=== PATIENT | male | born 1990 | race Caucasian/White ===

== ENCOUNTER 2020-01-08 08:00 | Day surgery (SDC) | payer OTHER ==
[~2020-01-08] VITALS: Ht 182.9 cm; Wt 108.0 kg
[2020-01-08] MEDS ORDERED: FENTANYL PF 250 MCG/5ML ONE (08:50)
[2020-01-08] MEDS ORDERED: MIDAZOLAM 1 MG/ML, 2ML ONE (08:50)
[2020-01-08] MEDS ORDERED: LACTATED RINGERS 1,000 ML IV SCH (09:06)
[2020-01-08] MEDS ORDERED: PANT20TA3 PO (09:09)
[2020-01-08 09:14] VITALS: BP 120/81
[2020-01-08] MEDS ORDERED: OXYcodone 5 MG/5 ML ORAL.SOL UDC PO PRN (09:30)
[2020-01-08] MEDS ORDERED: MORPHINE SULFATE 4 MG/ML, 1ML IVPush PRN (09:30)
[2020-01-08] MEDS ORDERED: PLEASE ENTER HEIGHT AND WEIGHT MC SCH (09:30)
[2020-01-08] MEDS ORDERED: ACETAMINOPHEN 500 MG TABLET PO ONE (09:30)
[2020-01-08] MEDS ORDERED: MEPERIDINE/PF 25MG/ML,1ML IVPush PRN (09:30)
[2020-01-08] MEDS ORDERED: PLEASE ENTER ALLERGIES MC SCH (09:30)
[2020-01-08] MEDS ORDERED: GABAPENTIN 300 MG CAPSULE PO ONE (09:30)
[2020-01-08] MEDS ORDERED: HYDROmorphone 2 MG/ML, 1ML IVPush PRN (09:30)
[2020-01-08] MEDS ORDERED: FENTANYL PF 100 MCG/2ML IV PRN (09:30)
[2020-01-08] MEDS ORDERED: ONDANSETRON 2MG/ML, 2ML IV PRN (09:30)
[2020-01-08] MEDS ORDERED: ACETAMINOPHEN 500 MG TABLET ONE (09:32)
[2020-01-08] MEDS ORDERED: GABAPENTIN 300 MG CAPSULE ONE (09:33)
[2020-01-08] MEDS ORDERED: BUPIVACAINE/PF 0.5% ONE (09:52)
[2020-01-08] MEDS ORDERED: EPINEPHRINE 1 MG/ML, 1ML ONE (09:52)
[2020-01-08] MEDS ORDERED: GLYCOPYRROLATE 0.2MG/1ML, 5ML ONE (10:22)
[2020-01-08] MEDS ORDERED: PROPOFOL 10 MG/ML, 20ML ONE (10:22)
[2020-01-08] MEDS ORDERED: ROCURONIUM 10MG/ML,5ML ONE (10:22)
[2020-01-08] MEDS ORDERED: NEOSTIGMINE 1 MG/ML, 10ML ONE (10:22)
[2020-01-08] MEDS ORDERED: CEFAZOLIN 1,000 MG ONE (10:22)
[2020-01-08] MEDS ORDERED: KETOROLAC 30 MG/1 ML ONE (10:23)
[2020-01-08] MEDS ORDERED: BUPIVACAINE/PF-EPI 0.5% 1:200K INFIL ONE (10:28)
[2020-01-08] MEDS ORDERED: FENTANYL PF 100 MCG/2ML ONE (11:27)
[2020-01-08] MEDS ORDERED: OXYcodone 5 MG/5 ML ORAL.SOL UDC ONE (11:28)
== END 2020-01-08 13:15 | disposition home or self-care (01) ==
LOC: OUT 08:00
PROVIDERS: ATTEND Orthopaedic Surgery
DX: S42.022A Displaced fracture of shaft of left clavicle, initial encounter for closed fracture (principal); W00.0XXA Fall on same level due to ice and snow, initial encounter; Y93.23 Activity, snow (alpine) (downhill) skiing, snowboarding, sledding, tobogganing and snow tubing; Y92.89 Other specified places as the place of occurrence of the external cause; Y99.8 Other external cause status
CPT/HCPCS: 23515; 73000; C1713; J0690; J1885; J2250; J2704; J2710; J3010; J7120; 76000; J0171